=== PATIENT | female | born 1940 | race Two or more races ===

== ENCOUNTER 2024-10-05 11:41 | Emergency (ER) | payer MEDICAID, SELFPAY ==
[2024-10-05 11:42] VITALS: BMI 25.4
[2024-10-05 11:54] VITALS: BP 122/68; PULSE 74; RESP 18; TEMP 36.7; O2SAT 96
--- NOTE | 2024-10-05 12:05 | PD.EDRME ---
Rapid Medical Screening Exam [facility] Arrival date/time: 10/05/24 11:41 83-year-old female presents to the emergency department for complaints of dysuria and generalized fatigue Chief Complaint: Weakness Vital signs: Vital Signs Temperature 98.1 F 10/05/24 11:54 Pulse Rate 74 10/05/24 11:54 Respiratory Rate 18 10/05/24 11:54 Blood Pressure 122/68 10/05/24 11:54 Pulse Oximetry (%) 96 10/05/24 11:54 Oxygen Delivery Method Room Air 10/05/24 11:54
[2024-10-05 12:47] LABS: Lactate (Lactic Acid) 2.8 mMol/L (0.4-2.0)
[2024-10-05 12:49] LABS: Basophils # (Auto) 0.1 Thou/mm3 (0.0-0.2); Basophils % (Auto) 1 % (0-2.5); Eosinophils # (Auto) 0.0 Thou/mm3 (0.0-0.5); Eosinophils % (Auto) 0 % (0-10); Hematocrit 40.9 % (36.0-46.0); Hemoglobin 14.1 g/dL (12.0-16.0); Immature Granulocytes Auto 0.02 Thou/mm3 (0.00-0.00); Lymphocytes # (Auto) 1.3 Thou/mm3 (1.0-4.8); Lymphocytes % (Auto) 13 % (10-50); Mean Corpuscular HGB Conc 34.5 g/dl (31.0-37.0); Mean Corpuscular Hemoglobin 31.7 pg (25.0-35.0); Mean Corpuscular Volume 92 fL (80-100); Monocytes # (Auto) 0.8 Thou/mm3 (0.0-0.8); Monocytes % (Auto) 8 % (0-12); Neutrophils # (Auto) 7.9 Thou/mm3 (1.8-7.7); Neutrophils % (Auto) 79 % (37-80); Nucleated Red Blood Cell # 0.00 Thou/mm3 (0.00-0.00); Nucleated Red Blood Cell % 0 /100 WBC (0); Platelet Count 205 Thou/mm3 (140-440); RDW Standard Deviation 48.4 fL (36.4-46.3); Red Blood Count 4.45 Miln/mm3 (4.00-5.20); White Blood Count 10.0 Thou/mm3 (3.6-11.0)
[2024-10-05 13:07] LABS: Alanine Aminotransferase 10 U/L (10-49); Albumin, Serum 4.5 gm/dL (3.4-4.8); Albumin/Globulin Ratio 1.5 (1.2-2.2); Alkaline Phosphatase 65 U/L (46-116); Anion Gap 10 (7-16); Aspartate Amino Transferase 18 U/L (0-34); BUN/Creatinine Ratio 20 Ratio (12-20); Bilirubin,Total 0.9 mg/dL (0.3-1.2); Blood Urea Nitrogen 36 mg/dL (9-23); Calcium 10.8 mg/dL (8.3-10.6); Calcium (Corrected) 10.8 mg/dL (8.5-10.1); Carbon Dioxide 27.8 mMol/L (20.0-31.0); Chloride 104 mMol/L (98-107); Creatinine (Component) 1.8 mg/dL (0.6-1.3); Estimated Creatinine Clearance 24.9 mL/min (>60); Globulin 3.0 gm/dL (2.3-3.5); Glucose 102 mg/dL (74-106); Lipase 28 U/L (12-53); Osmolality,Calculated 291 (275-295); Potassium 4.7 mMol/L (3.4-5.1); Sodium 142 mMol/L (136-145); Total Protein 7.5 gm/dL (5.7-8.2); eGFR 28 See Note
[2024-10-05 14:38] VITALS: BP 141/72; PULSE 58; RESP 17; TEMP 36.6; O2SAT 95
--- NOTE | 2024-10-05 14:43 | EDNOTE_ITS ---
ED Weakness RME/HPI General Chief complaint: Weakness Stated complaint: WEAKNESS, LOW BP, HX OF UTI, SENT BY [facility] Time Seen by Provider: 10/05/24 14:05 Arrival date/time: 10/05/24 11:41 RME / HPI RME / HPI Narrative: 83-year-old female presents to the emergency department for complaints of dysuria and generalized fatigue. This been ongoing for the last 2 days. Severity of symptoms moderate. Patient denies any abdominal pain. Patient denies any vomiting denies any fever denies any cough denies any other complaints. Was seen in the clinic early this morning and was noted to have a bad UTI and hypotensive patient was sent here for further evaluation. Related Data Previous Rx's ?Medication ?Instructions ?Recorded cefdinir 300 mg capsule 300 mg PO BID #14 caps 10/05 Allergies Allergy/AdvReac Type Severity Reaction Status Date / Time No Known Allergies Allergy Verified 10/05/24 11:47 Review of Systems Review of Systems Narrative Review of Systems: Review of system reviewed and within normal limits except mentioned in HPI ED Exam Narrative Physical exam: VITAL SIGNS: Reviewed. GENERAL APPEARANCE: Alert and interactive, follows commands, no acute distress, HEAD AND FACE: Non-traumatic. ENT: PERRL, pink conjunctivitis, eyelid no trauma, Mucous membrane moist. NECK: Supple, nontender, no nuchal rigidity. CHEST: No tenderness, no crepitus, no paradoxical movement, no retractions. LUNGS: Clear, well ventilated, symmetric, no rales, no wheezing, no ronchi, no stridor, good breath sounds bilaterally. HEART: Regular rate, regular rhythm, no murmur, no gallops. ABDOMEN: Soft, positive bowel sounds, nondistended, no guarding, nontender, no rebound, no masses, RECTAL: Deferred. GENITAL: Deferred. NEUROLOGICAL: Gross motor function intact sensory function intact, Appropriate for age. MUSCULOSKELETAL: low back nontender, full range of motion. EXTREMITIES: Nontender, full range of motion. SKIN: Color pink, dry, no rash, no lacerations, no abrasions, no contusions. LYMPHATICS: Deferred. Course Quality Measures none Orders Category Date Time Status CBC Stat Lab 10/05/24 12:28 Completed Comprehensive Metabolic Panel Stat Lab 10/05/24 12:28 Completed Lactate (Lactic Acid) Stat Lab 10/05/24 12:28 Completed Lactic Acid, 3 HR Stat Lab 10/05/24 15:55 Completed Lipase Stat Lab 10/05/24 12:28 Completed UA, C/S IF [Urinalysis, C/S if Indicated] Stat Lab 10/05/24 15:52 Completed Urine Culture Stat Lab 10/05/24 15:52 Received Ringers Lactated 1000 ml [Lactated Ringers] 1,000 ml Med 10/05/24 14:05 Discontinued IV 999 mls/hr cefTRIAXone/D5w 1gm IV premix [Rocephin/D5w 1gm IV Med 10/05/24 16:22 Discontinued premix] 1 gm in 50 ml IV X1 Vital Signs Vital signs: Vital Signs Temperature 98.1 F 10/05/24 11:54 Pulse Rate 74 10/05/24 11:54 Respiratory Rate 18 10/05/24 11:54 Blood Pressure 122/68 10/05/24 11:54 Pulse Oximetry (%) 96 10/05/24 11:54 Oxygen Delivery Method Room Air 10/05/24 11:54 Weakness [facility] Narrative [facility] Narrative:: 83-year-old female presents to the emergency department for complaints of dysuria and generalized fatigue. This been ongoing for the last 2 days. Severity of symptoms moderate. Patient denies any abdominal pain. Patient denies any vomiting denies any fever denies any cough denies any other complaints. Was seen in the clinic early this morning and was noted to have a bad UTI and hypotensive patient was sent here for further evaluation. Patient's workup was significant for UTI. Otherwise unremarkable patient blood pressure was noted to be 148/71 prior to discharge. Patient received IV fluids, IV ceftriaxone with significant improvement of symptoms. Patient data External records reviewed:: None Clinical information provided by:: patient Social determinants that could affect healthcare access:: none Patient has the following chronic illnesses:: Hypertension How is presenting disease/condition affected by chronic disease/condition?: no chronic disease Evaluation data The following diagnostics were reviewed and interpreted by me:: lab results and radiology exam(s) Lab and/or radiology exams considered but not ordered:: None Interpretation Summary: See recent results in MDM Medications / Prescriptions Medications or Prescriptions considered but not ordered:: None Medication administrations:: Medication Administration History Discontinued Medications Lactated Ringer's (Lactated Ringers) 1,000 mls @ 999 mls/hr IV .Q1H1M ONE Stop: 10/05/24 15:05 Last Infusion: 10/05/24 17:05 Dose: Infused Documented By: Admin: 10/05/24 15:17 Dose: 999 mls/hr Documented By: MARCUS Ceftriaxone Sodium/Dextrose (Rocephin/D5w 1gm Iv Premix) 1 gm in 50 mls @ 100 mls/hr IV X1 ONE Stop: 10/05/24 16:51 Last Infusion: 10/05/24 17:50 Dose: Infused Documented By: Admin: 10/05/24 17:09 Dose: 100 mls/hr Documented By: MARCUS Ceftriaxone IV IV fluids Consultations Consultation(s) initiated? (list below): No Diagnosis Weakness Differential Diagnosis: dehydration and other (UTI) Most likely diagnosis given after review of the tests above:: uti Admission Indicated Admission indicated?: not indicated Admission Request Was there a request for admission?: No Disposition Plan Disposition Plan: Discharge Discharge Attestation Discharge Attestation: The patient and all family members were given an opportunity to ask questions and understood the discharge instructions. Discharge instructions specifically effects, indications for sooner follow up or return to the emergency department, and the expected course of current diagnosis. Patient condition: Stable Discharge Plan Plan Patient Disposition: HOME (Self Care) Discharge Disposition comment: Stable Patient condition on transfer: Stable Prescriptions/Referrals Prescriptions/Med Rec: New cefdinir 300 mg capsule 300 mg PO BID Qty: 14 0RF Referrals: Willy Iqbal MD [Primary Care Provider] - In 1 week Problem List Clinical Impression: UTI (urinary tract infection) Patient/Caregiver Discharge Instructions Discharge Activity: activity as tolerated Education Materials: Understanding Urinary Tract ... Additional Instructions: Thank you for the opportunity for serving you today. You are stable for discharged . You are advised to: Follow-up with your PCP in 1 to 2 days Return to ED for worsening of symptoms Increase oral fluids Take medication as prescribed Print Language: Australian Stand Alone Forms: Emelia Award Info., Patient Portal Info Letter PA/JOSE CARLOS Supervising Physician ANGI/JOSE CARLOS Supervising Physician: MD Keenan
[2024-10-05] MEDS: RINGERS LACTATED 1000 ML 1,000 ML 999 ML IV (15:17)
[2024-10-05 15:43] LABS: Reflex Lactate? Y
[2024-10-05 16:01] LABS: Collection Type, Urine Clean Catch
[2024-10-05 16:02] LABS: Lactic Acid, 3 HR 1.8 mMol/L (0.4-2.0)
[2024-10-05 16:04] VITALS: BP 147/97; PULSE 52; RESP 15; TEMP 36.8; O2SAT 96
[2024-10-05 16:09] LABS: Bacteria,Urine 1+; Bilirubin,Urine Negative (Negative); Blood,Urine 2+ (Negative); Color,Urine Yellow (Lt Yel-Yel); Glucose, Urine Negative (Negative); Ketones,Urine Negative (Negative); Leukocyte Esterase,Urine Positive (Negative); Nitrite,Urine Positive (Negative); PH,Urine 6.0 (5.0-7.0); Protein,Urine 1+ (Neg - Trace); RBC,Urine 38 /hpf (0-3); Specific Gravity,Urine 1.015 (1.001-1.035); Squamous Epithelial Cell,Urine 3 /hpf (0-5); Urobilinogen,Urine Negative mg/dL (0.0-1.0); WBC,Urine 2951 /hpf (0-5)
[2024-10-05 16:12] LABS: Clarity,Urine Cloudy (Clear/Hazy)
[2024-10-05 16:13] LABS: Culture Indicated,Urine Yes
[2024-10-05] MEDS: cefTRIAXone/D5w 1gm IV premix 1 GM/50 ML BAG IV (17:09)
[2024-10-05 18:25] VITALS: BP 148/71; PULSE 63; RESP 18; TEMP 36.8; O2SAT 94
== END 2024-10-05 18:25 | disposition home or self-care (01) ==
PROVIDERS: Nurse Practitioner Primary Care; Emergency Provider Family Medicine; PCP Family Medicine
DX: N39.0 Urinary tract infection, site not specified (principal)
CPT/HCPCS: 36415; 80053; 81001; 83605; 83690; 85025; 87077; 87086; 87186; 96361; 96365; 99283; J0696; J7120

== ENCOUNTER 2024-12-13 22:44 | Emergency (ER) | payer SELFPAY ==
[2024-12-13 22:46] VITALS: BMI 17.7
[2024-12-13 23:25] VITALS: BP 119/75; PULSE 76; RESP 20; TEMP 37.2; O2SAT 97
--- NOTE | 2024-12-13 23:57 | PD.EDRME ---
Rapid Medical Screening Exam [facility] Arrival date/time: 12/13/24 22:44 84-year-old female brought in by relative with complaint of dizziness x 2 days Chief Complaint: General Adult/Misc Complain Time Seen by Provider: 12/13/24 23:13 Vital signs: Vital Signs Temperature 98.9 F 12/13/24 23:25 Pulse Rate 76 12/13/24 23:25 Respiratory Rate 20 12/13/24 23:25 Blood Pressure 119/75 12/13/24 23:25 Pulse Oximetry (%) 97 12/13/24 23:25 Oxygen Delivery Method Room Air 12/13/24 23:25
[2024-12-14 00:21] LABS: Basophils # (Auto) 0.1 Thou/mm3 (0.0-0.2); Basophils % (Auto) 1 % (0-2.5); Eosinophils # (Auto) 0.1 Thou/mm3 (0.0-0.5); Eosinophils % (Auto) 1 % (0-10); Hematocrit 40.5 % (36.0-46.0); Hemoglobin 13.7 g/dL (12.0-16.0); Immature Granulocytes Auto 0.01 Thou/mm3 (0.00-0.00); Lymphocytes # (Auto) 1.4 Thou/mm3 (1.0-4.8); Lymphocytes % (Auto) 27 % (10-50); Mean Corpuscular HGB Conc 33.8 g/dl (31.0-37.0); Mean Corpuscular Hemoglobin 32.3 pg (25.0-35.0); Mean Corpuscular Volume 96 fL (80-100); Monocytes # (Auto) 0.6 Thou/mm3 (0.0-0.8); Monocytes % (Auto) 11 % (0-12); Neutrophils # (Auto) 3.2 Thou/mm3 (1.8-7.7); Neutrophils % (Auto) 60 % (37-80); Nucleated Red Blood Cell # 0.00 Thou/mm3 (0.00-0.00); Nucleated Red Blood Cell % 0 /100 WBC (0); Platelet Count 190 Thou/mm3 (140-440); RDW Standard Deviation 48.1 fL (36.4-46.3); Red Blood Count 4.24 Miln/mm3 (4.00-5.20); White Blood Count 5.4 Thou/mm3 (3.6-11.0)
[2024-12-14 00:36] VITALS: BP 123/91; PULSE 64; RESP 16; TEMP 37.2; O2SAT 97
[2024-12-14 00:36] LABS: Collection Type, Urine Clean Catch
[2024-12-14 00:43] LABS: Bilirubin,Urine Negative (Negative); Blood,Urine Negative (Negative); Budding Yeast,Urine Present; Clarity,Urine Turbid (Clear/Hazy); Color,Urine Yellow (Lt Yel-Yel); Glucose, Urine Negative (Negative); Ketones,Urine Negative (Negative); Leukocyte Esterase,Urine Positive (Negative); Nitrite,Urine Negative (Negative); PH,Urine 7.0 (5.0-7.0); Protein,Urine Trace (Neg - Trace); RBC,Urine 21 /hpf (0-3); Specific Gravity,Urine 1.020 (1.001-1.035); Squamous Epithelial Cell,Urine 3 /hpf (0-5); Urobilinogen,Urine Negative mg/dL (0.0-1.0); WBC,Urine 59 /hpf (0-5)
--- NOTE | 2024-12-14 00:47 | PD.EDDIZZY ---
ED Dizzyness RME/HPI General Chief Complaint: General Adult/Misc Complain Stated Complaint: nausea vomiting headache Time Seen by Provider: 12/13/24 23:13 Arrival date/time: 12/13/24 22:44 RME / HPI RME / HPI Narrative: 12/13/24 22:44 84-year-old female brought in by relative with complaint of dizziness x [address] PHELPS MAIN ED EVALUATION: 84 y/o female with Hx of Anemia and HTN presents to ED c/o dizziness and headache x 9 days. Patient reports similar symptoms to when she has needed a blood transfusion. Granddaughter also reports recent completion of ABX for UTI that was prescribed on 12/11/2024. Denies any pain. Related Data Previous Rx's ?Medication ?Instructions ?Recorded cefdinir 300 mg capsule 300 mg PO BID #14 caps 10/05/24 Allergies Allergy/AdvReac Type Severity Reaction Status Date / Time No Known Allergies Allergy Verified 12/13/24 22:51 Review of Systems Review of Systems Systems Reviewed: All systems reviewed, normal except as documented Past Medical History Past Medical History CARDIAC: Positive Hypertension HEMATOLOGIC: Positive Anemia ED Exam Narrative Physical exam: Generally patient is alert and in no obvious distress, heart regular rate and rhythm, lungs clear to auscultation equal bilaterally, abdomen soft bowel sounds present nondistended nontender, skin is warm pale and dry, neurologic exam Dao Coma Scale of 15 without focal motor deficit Course Quality Measures none Orders Category Date Time Status EKG (ED ONLY) *Do not use* NOW Care 12/13/24 23:53 Completed EKG (ED Only) Stat Exams 12/13/24 23:49 Ordered CBC Stat Lab 12/13/24 23:52 Completed CMP [Comprehensive Metabolic Panel] Stat Lab 12/13/24 23:52 Completed Troponin I Stat Lab 12/13/24 23:52 Completed UA, C/S IF [Urinalysis, C/S if Indicated] Stat Lab 12/14/24 00:32 Completed Urine Culture Stat Lab 12/14/24 00:32 Received Fluconazole [Diflucan] Med 12/14/24 01:13 Discontinued 150 mg PO X1 ONE Vital Signs Vital signs: Vital Signs Temperature 98.9 F 12/13/24 23:25 Pulse Rate 76 12/13/24 23:25 Respiratory Rate 20 12/13/24 23:25 Blood Pressure 119/75 12/13/24 23:25 Pulse Oximetry (%) 97 12/13/24 23:25 Oxygen Delivery Method Room Air 12/13/24 23:25 Dizziness MDM Narrative MDM Narrative:: Scribe Attestation: I, Tisha Rizvi, am scribing for and in the presence of Dr. Phelps. Provider Notation: Although this document has been carefully reviewed, there may still be some phonetic and other typographical errors. These errors are purely grammatical due to imperfections in the software program and should not be construed in any way to compromise the substance of the patient's medical care during this visit. Patient does have white blood cells without bacteria in the urine. Leukocyte esterase was positive. Nitrate was negative. There was budding yeast. Patient was given Diflucan 150 mg p.o. Patient has been recently on antibiotics. Urine will be cultured. I will try the patient on a short course of cephalexin to be taken as prescribed under the possibility that she has a bacterial UTI. Cardiac workup was unremarkable. EKG showed normal sinus rhythm at rate of 63 without ischemic change or ectopy. Patient data External records reviewed:: [facility] previous records (Reviewed prior ED records from 10/05/24. Patient was seen for UTI (urinary tract infection).) Clinical information provided by:: family ([facility]) Social determinants that could affect healthcare access:: none Patient has the following chronic illnesses:: HTN, Anemia How is presenting disease/condition affected by chronic disease/condition?: exacerbated by Evaluation data The following diagnostics were reviewed and interpreted by me:: lab results and EKG tracing(s) Lab and/or radiology exams considered but not ordered:: None Interpretation Summary: See MDM above Medications / Prescriptions Medications or Prescriptions considered but not ordered:: None Medication administrations:: Medication Administration History Discontinued Medications Fluconazole (Fluconazole 150 Mg Tablet) 150 mg PO X1 ONE Stop: 12/14/24 01:14 Last Admin: 12/14/24 01:27 Dose: 150 mg Documented By: CB See above if any Consultations Consultation(s) initiated? (list below): No Diagnosis Dizziness Differential Diagnosis: adverse reaction to drug, benign paroxysmal positional vertigo, orthostatic hypotension, vertebral basilar insufficiency, acute vestibular neuronitis and other (UTI, Cystitis, Pyelonephritis) Most likely diagnosis given after review of the tests above:: none Admission Indicated Admission indicated?: not indicated Explain why admission is indicated or not indicated:: Patient does not meet admission criteria Admission Request Was there a request for admission?: No Disposition Plan Disposition Plan: Discharge Discharge Attestation Discharge Attestation: The patient and all family members were given an opportunity to ask questions and understood the discharge instructions. Discharge instructions specifically effects, indications for sooner follow up or return to the emergency department, and the expected course of current diagnosis. Patient condition: Stable Discharge Plan Plan Patient Disposition: HOME (Self Care) Prescriptions/Referrals Prescriptions/Med Rec: No Action cefdinir 300 mg capsule 300 mg PO BID Qty: 14 0RF Problem List Clinical Impression: Urinary tract infection Patient/Caregiver Discharge Instructions Education Materials: Urinary Tract Infections in Women Additional Instructions: Cephalexin as prescribed. Follow-up with your doctor for further treatment and evaluation. Print Language: Yoruba Stand Alone Forms: Emelia Award Info., Patient Portal Info Letter
[2024-12-14 00:49] LABS: Culture Indicated,Urine Yes
[2024-12-14 00:50] LABS: Alanine Aminotransferase 9 U/L (10-49); Albumin, Serum 4.2 gm/dL (3.4-4.8); Albumin/Globulin Ratio 1.7 (1.2-2.2); Alkaline Phosphatase 61 U/L (46-116); Anion Gap 8 (7-16); Aspartate Amino Transferase 18 U/L (0-34); BUN/Creatinine Ratio 19 Ratio (12-20); Bilirubin,Total 0.5 mg/dL (0.3-1.2); Blood Urea Nitrogen 17 mg/dL (9-23); Calcium 9.0 mg/dL (8.3-10.6); Calcium (Corrected) 9.0 mg/dL (8.5-10.1); Carbon Dioxide 27.9 mMol/L (20.0-31.0); Chloride 107 mMol/L (98-107); Creatinine (Component) 0.9 mg/dL (0.6-1.3); Estimated Creatinine Clearance 38.0 mL/min (>60); Globulin 2.5 gm/dL (2.3-3.5); Glucose 88 mg/dL (74-106); Osmolality,Calculated 285 (275-295); Potassium 4.1 mMol/L (3.4-5.1); Sodium 143 mMol/L (136-145); Total Protein 6.7 gm/dL (5.7-8.2); Troponin I < 0.020 ng/mL (0.0-0.045); eGFR > 60 See Note
[2024-12-14] MEDS: FLUCONAZOLE 150 MG TABLET PO (01:27)
[2024-12-14 02:25] VITALS: BP 167/96; PULSE 67; RESP 16; TEMP 36.7; O2SAT 97
== END 2024-12-14 02:30 | disposition home or self-care (01) ==
LOC: SERX 12-14 04:06
PROVIDERS: Physician Assistant; Emergency Provider Emergency Medicine; PCP Family Medicine
DX: N39.0 Urinary tract infection, site not specified (principal); I10 Essential (primary) hypertension
CPT/HCPCS: 36415; 80053; 81001; 84484; 85025; 87086; 93005; 99283; A9270

== ENCOUNTER 2024-12-26 21:53 | Emergency (ER) | payer SELFPAY ==
[2024-12-26 21:56] VITALS: BMI 27.8
[2024-12-26 22:02] VITALS: BP 152/91; PULSE 71; RESP 18; TEMP 36.8; O2SAT 95
--- NOTE | 2024-12-26 22:27 | EKG_ITS ---
[facility] Test Date: 2024-12-26 Pat Name: PAT CAIN Department: Room: - Gender: Female Social Media Content Manager: : 1940 Requested By: David Covington Order Number: [id number] Reading MD: David Covington Measurements Intervals [place] Rate: 69 P: 53 CT: 155 QRS: 1 QRSD: 97 T: 167 QT: 389 QTc: 417 Interpretive Statements SINUS RHYTHM SEPTAL MYOCARDIAL INFARCTION , OF INDETERMINATE AGE [40+ ms Q WAVE IN V1/V2] Compared to ECG 12/14/2024 00:38:40 Ectopic atrial rhythm no longer present Myocardial infarct finding still present /store/S0/[id number].pdf
--- NOTE | 2024-12-26 22:27 | XR_ITS ---
Examination: CT brain head without contrast. 2-D sagittal coronal reconstructions Date and time of exam: December 27, 2024, 0006 hours INDICATIONS: Onset headaches beginning 3 weeks ago CTDI: vol (mGy): 45.2 DLP: (mGycm): 903 Technique: Multiple CT axial sections of the brain have been obtained, 5 mm slice thickness. Contrast has not been administered. 2-D sagittal, coronal reconstructions have been obtained Low dose protocols were performed. One or more of the following dose reduction techniques were used; automated exposure control, adjustment of the mA and/or KV according to patient size, use of iterative reconstruction technique. Findings: No significant ventricular enlargement. 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 No mass effect or midline shift Basal cisterns are not remarkable. Fourth ventricle is midline. Cranial vault intact. Impression: Negative for acute hemorrhage, mass effect or midline shift Advise clinical correlation and follow-up accordingly
--- NOTE | 2024-12-26 22:28 | EDNOTE_ITS ---
ED Headache RME/HPI General Chief Complaint: Headache Stated Complaint: HEADACHE X 3 WEEKS Time Seen by Provider: 12/26/24 22:10 Source: patient, family, RN notes reviewed and old records reviewed Arrival date/time: 12/26/24 21:53 Mode of arrival: wheelchair Limitations: no limitations RME / HPI RME / HPI Narrative: 84yof presents to ED for 3-week history of headache. Patient c/o aching, throbbing posterior PERALES, no exacerbating factors. Reports intermittent dizziness. Current pain 09/28. No fever, vision changes, n/v, neck pain, sob or cp reported. Patient has taken tylenol and diclofenac with little relief. 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 Related Data Previous Rx's ?Medication ?Instructions ?Recorded cefdinir 300 mg capsule 300 mg PO BID #14 caps 10/05 acetaminophen 500 mg tablet 1,000 mg (2 x 500 mg) PO Q 6H PRN 12/27/24 (Tylenol Extra Strength) pain #30 tabs acetaminophen 500 mg tablet 1,000 mg (2 x 500 mg) PO Q 6H PRN 12/27/24 (Tylenol Extra Strength) pain #30 tabs metoclopramide HCl 10 mg tablet 10 mg PO Q6H PRN nause a #10 tabs 12/27/24 (Reglan) metoclopramide HCl 10 mg tablet 10 mg PO Q6H PRN nause a and 12/27/24 (Reglan) vomiting #20 tabs nitrofurantoin 100 mg PO BID 7 days #14 cap s 12/27/24 monohydrate/macrocrystals 100 mg capsule (Macrobid) nitrofurantoin 100 mg PO BID 7 days #14 cap s 12/27/24 monohydrate/macrocrystals 100 mg capsule (Macrobid) Allergies Allergy/AdvReac Type Severity Reaction Status Date / Time No Known Allergies Allergy Verified 12/13/24 22:51 Review of Systems Review of Systems Systems Reviewed: All systems reviewed, normal except as documented Constitutional Constitutional: Denies chills, Denies fever(s) and Reports headache(s) Eyes Eyes: Denies blurry vision ENT Ears, Nose, Mouth, and Throat: Reports dizziness, Reports headache(s) and Denies neck pain Cardiovascular Cardiovascular: Denies chest pain and Denies dyspnea Respiratory Respiratory: Denies dyspnea Gastrointestinal Gastrointestinal: Denies nausea and Denies vomiting Musculoskeletal Musculoskeletal: Denies neck pain Neurologic Neurologic: Reports dizziness and Reports headache(s) Past Medical History Past Medical History CARDIAC: Positive Hypertension HEMATOLOGIC: Positive Anemia Social History SMOKING STATUS: Never smoker SUBSTANCE USE: does not use ALCOHOL: Never ED Exam General Limitations: Present no limitations General appearance: Present alert and in no apparent distress Head Head exam: Present atraumatic and normocephalic Eye Eye exam: Present normal appearance, PERRL and EOMI ENT ENT exam: Present normal exam and mucous membranes moist Neck Neck exam: Present normal inspection and full ROM Chest Chest inspection: Present normal inspection and symmetric chest wall rise Respiratory Respiratory exam: Present normal lung sounds bilaterally; Absent respiratory distress Cardiovascular Cardiovascular exam: Present regular rate and normal rhythm Extremities Exam Extremities exam: Present normal inspection and full ROM Neurological Exam Neurological exam: Present alert and oriented X3 Psychiatric Psychiatric exam: Present normal affect and normal mood Skin Skin exam: Present warm, dry, intact and normal color Course Quality Measures none Orders Category Date Time Status EKG (ED ONLY) *Do not use* NOW Care 12/26/24 22:[address] head/brain wo con Stat Exams 12/26/24 22:27 Completed EKG (ED Only) Stat Exams 12/26/24 22:27 Draft CBC Stat Lab 12/26/24 22:55 Completed CMP [Comprehensive Metabolic Panel] Stat Lab 12/26/24 22:55 Completed Troponin I Stat Lab 12/26/24 22:55 Completed UA [Urinalysis] Stat Lab 12/26/24 22:55 Completed Acetaminophen Tab [Tylenol ES Tab] Med 12/26/24 22:36 Discontinued 1,000 mg PO X1 ONE DiphenhydrAMINE INJ [Benadryl Inj] Med 12/26/24 22:36 Discontinued 12.5 mg IM X1 ONE Metoclopramide [Reglan] Med 12/26/24 22:36 Discontinued 10 mg PO X1 ONE Vital Signs Vital signs: Vital Signs Temperature 98.3 F 12/26/24 22:02 Pulse Rate 71 12/26/24 22:02 Respiratory Rate 18 12/26/24 22:02 Blood Pressure 152/91 H 12/26/24 22:02 Pulse Oximetry (%) 95 12/26/24 22:02 Oxygen Delivery Method Room Air 12/26/24 22:02 PROCEDURES: EKG Interpretation #1: Date of EK12/26/24 Rate: 69 Interpretation: Interpreted by me EKG Impression: Normal sinus rhythm and No acute ST-T changes Additional EKG comment: No stemi Headache MDM Narrative MDM Narrative:: 84yof presents to ED for 3-week history of headache. Patient c/o aching, throbbing posterior PERALES, no exacerbating factors. Reports intermittent dizziness. Current pain 7/10. No fever, vision changes, n/v, neck pain, sob or cp reported. Patient has taken tylenol and diclofenac with little relief. 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 Patient reassessed. PERALES improved after medications administered. Patient is neurologically intact. Will treat for UTI. Encouraged rest, fluids, symptomatic treatment prn. Stable for dc, RTED precautions given. Patient data External records reviewed:: [facility] previous records (12/13/24 ED visit for UTI) Clinical information provided by:: patient and family (daughter) Social determinants that could affect healthcare access:: none Patient has the following chronic illnesses:: HTN, anemia How is presenting disease/condition affected by chronic disease/condition?: uneffected by Evaluation data The following diagnostics were reviewed and interpreted by me:: lab results, radiology exam(s) and EKG tracing(s) Lab and/or radiology exams considered but not ordered:: none Interpretation Summary: CT head: no ICH per my read UA +leuks/wbcs No leukocytosis No anemia No BRODERICK Negative troponin Medications / Prescriptions Medications or Prescriptions considered but not ordered:: none Medication administrations:: Medication Administration History Discontinued Medications Acetaminophen (Acetaminophen 500 Mg Tablet) 1,000 mg PO X1 ONE Stop: 12/26/24 22:37 Last Admin: 12/26/24 23:06 Dose: 1,000 mg Documented By: ASHWINI Diphenhydramine HCl (Diphenhydramine Inj 50 Mg/Ml Vial) 12.5 mg IM X1 ONE Stop: 12/26/24 22:37 Last Admin: 12/26/24 23:06 Dose: 12.5 mg Documented By: ASHWINI Metoclopramide HCl (Metoclopramide 5 Mg Tablet) 10 mg PO X1 ONE Stop: 12/26/24 22:37 Last Admin: 12/26/24 23:05 Dose: 10 mg Documented By: ASHWINI above medications administered in ED Consultations Consultation(s) initiated? (list below): No Diagnosis Differential diagnosis headache: migraine, tension headache, subarachnoid hemorrhage, headache, meningitis and sinusitis Most likely diagnosis given after review of the tests above:: headache, UTI Admission Indicated Admission indicated?: not indicated Admission Request Was there a request for admission?: No Disposition Plan Disposition Plan: Discharge Discharge Attestation Discharge Attestation: The patient and all family members were given an opportunity to ask questions and understood the discharge instructions. Discharge instructions specifically effects, indications for sooner follow up or return to the emergency department, and the expected course of current diagnosis. Patient condition: Stable Discharge Plan Plan Patient Disposition: HOME (Self Care) Patient condition on transfer: Stable Prescriptions/Referrals Prescriptions/Med Rec: New acetaminophen [Tylenol Extra Strength] 500 mg tablet 1,000 mg PO Q6H PRN (Reason: pain) Qty: 30 0RF metoclopramide HCl [Reglan] 10 mg tablet 10 mg PO Q6H PRN (Reason: nausea and vomiting) Qty: 20 0RF nitrofurantoin monohyd/m-cryst [Macrobid] 100 mg capsule 100 mg PO BID 7 Days Qty: 14 0RF Rx Instructions: must administer with a meal/food metoclopramide HCl [Reglan] 10 mg tablet 10 mg PO Q6H PRN (Reason: nausea) Qty: 10 0RF acetaminophen [Tylenol Extra Strength] 500 mg tablet 1,000 mg PO Q6H PRN (Reason: pain) Qty: 30 0RF nitrofurantoin monohyd/m-cryst [Macrobid] 100 mg capsule 100 mg PO BID 7 Days Qty: 14 0RF Rx Instructions: must administer with a meal/food No Action cefdinir 300 mg capsule 300 mg PO BID Qty: 14 0RF Referrals: Willy Iqbal MD [Primary Care Provider, Family Practice] - In 1 week Problem List Clinical Impression: Headache, UTI (urinary tract infection) Patient/Caregiver Discharge Instructions Education Materials: Self-Care for Headaches, ED CYSTITIS Female Adult Print Language: Bhutanese Stand Alone Forms: Emelia Award Info., Patient Portal Info Letter PA/DEALERSHIP GENERAL MANAGER Supervising Physician PA/JOSE CARLOS Supervising Physician: Tiffanie
[2024-12-26 23:00] LABS: Collection Type, Urine Clean Catch
[2024-12-26] MEDS: METOCLOPRAMIDE 5 MG TABLET 10 MG PO (23:05)
[2024-12-26] MEDS: ACETAMINOPHEN 500 MG TABLET 1000 MG PO (23:06)
[2024-12-26 23:08] LABS: Bilirubin,Urine Negative (Negative); Blood,Urine Negative (Negative); Clarity,Urine Turbid (Clear/Hazy); Color,Urine Yellow (Lt Yel-Yel); Glucose, Urine Negative (Negative); Hyaline Casts,Urine < 1 /hpf (0-1); Ketones,Urine 1+ (Negative); Leukocyte Esterase,Urine Positive (Negative); Nitrite,Urine Negative (Negative); PH,Urine 6.0 (5.0-7.0); Protein,Urine Trace (Neg - Trace); RBC,Urine 30 /hpf (0-3); Specific Gravity,Urine 1.024 (1.001-1.035); Squamous Epithelial Cell,Urine 7 /hpf (0-5); Urobilinogen,Urine Negative mg/dL (0.0-1.0); WBC,Urine 113 /hpf (0-5)
[2024-12-26 23:16] LABS: Basophils # (Auto) 0.1 Thou/mm3 (0.0-0.2); Basophils % (Auto) 1 % (0-2.5); Eosinophils # (Auto) 0.2 Thou/mm3 (0.0-0.5); Eosinophils % (Auto) 3 % (0-10); Hematocrit 39.9 % (36.0-46.0); Hemoglobin 13.5 g/dL (12.0-16.0); Immature Granulocytes Auto 0.01 Thou/mm3 (0.00-0.00); Lymphocytes # (Auto) 1.3 Thou/mm3 (1.0-4.8); Lymphocytes % (Auto) 26 % (10-50); Mean Corpuscular HGB Conc 33.8 g/dl (31.0-37.0); Mean Corpuscular Hemoglobin 31.5 pg (25.0-35.0); Mean Corpuscular Volume 93 fL (80-100); Monocytes # (Auto) 0.5 Thou/mm3 (0.0-0.8); Monocytes % (Auto) 10 % (0-12); Neutrophils # (Auto) 3.0 Thou/mm3 (1.8-7.7); Neutrophils % (Auto) 59 % (37-80); Nucleated Red Blood Cell # 0.00 Thou/mm3 (0.00-0.00); Nucleated Red Blood Cell % 0 /100 WBC (0); Platelet Count 192 Thou/mm3 (140-440); RDW Standard Deviation 46.3 fL (36.4-46.3); Red Blood Count 4.28 Miln/mm3 (4.00-5.20); White Blood Count 5.0 Thou/mm3 (3.6-11.0)
[2024-12-26 23:48] LABS: Alanine Aminotransferase 10 U/L (10-49); Albumin, Serum 4.1 gm/dL (3.4-4.8); Albumin/Globulin Ratio 1.7 (1.2-2.2); Alkaline Phosphatase 60 U/L (46-116); Anion Gap 8 (7-16); Aspartate Amino Transferase 19 U/L (0-34); BUN/Creatinine Ratio 22 Ratio (12-20); Bilirubin,Total 0.5 mg/dL (0.3-1.2); Blood Urea Nitrogen 22 mg/dL (9-23); Calcium 9.1 mg/dL (8.3-10.6); Calcium (Corrected) 9.1 mg/dL (8.5-10.1); Carbon Dioxide 27.2 mMol/L (20.0-31.0); Chloride 108 mMol/L (98-107); Creatinine (Component) 1.0 mg/dL (0.6-1.3); Estimated Creatinine Clearance 42.6 mL/min (>60); Globulin 2.4 gm/dL (2.3-3.5); Glucose 98 mg/dL (74-106); Osmolality,Calculated 288 (275-295); Potassium 3.9 mMol/L (3.4-5.1); Sodium 143 mMol/L (136-145); Total Protein 6.5 gm/dL (5.7-8.2); Troponin I < 0.020 ng/mL (0.0-0.045); eGFR 56 See Note
--- NOTE | 2024-12-27 01:08 | PRELIM_ITS ---
CT scan of the head without intravenous contrast (axial sections with sagittal and coronal reformats) December 27, 2024 0005 hours Clinical history: Headache x3 weeks Comparison: No prior study is available for comparison. Findings: There is no evidence of acute intracranial hemorrhage, mass effect or midline shift. Chronic lacunar infarcts are seen in the right basal ganglia and right internal capsule. There are periventricular white matter hypodensities, compatible with chronic small vessel ischemia. Basal ganglia calcifications are present bilaterally. There is [id number] volume loss. The calvarium is unremarkable. The mastoid air cells and the visualized paranasal sinuses are clear. Impression: No evidence of intracranial hemorrhage, mass effect or midline shift. Generalized cerebral atrophy and chronic small vessel ischemic change with chronic infarcts as described above. Suggest clinical correlation and follow up accordingly. Report Electronically Signed By: Ramesh Bains 12/27/2024 1:07:16 AM [EST]
== END 2024-12-27 01:22 | disposition home or self-care (01) ==
PROVIDERS: Physician Assistant; Emergency Provider Emergency Medicine; PCP Family Medicine
DX: R51.9 Headache, unspecified (principal); N39.0 Urinary tract infection, site not specified; I10 Essential (primary) hypertension
CPT/HCPCS: 36415; 70450; 80053; 81001; 84484; 85025; 93005; 96372; 99284; J1200; A9270